=== PATIENT | female | born 1930 | race Caucasian/White ===

== ENCOUNTER 2016-07-04 11:03 | Emergency (ER) | payer OTHER ==
--- NOTE | 2016-07-04 13:00 | ED ORDER SUMMARY ---
..... Patient: APRIL EDDY OrderSheet [facility] VisitID: [id number] [address] [place] [address] 85y, F Registration Date/Time: 07/04/2016 ORDER SHEET Weight: 77.1 kg (stated) Allergies: No Known Drug Allergy GENERAL ORDERS: MEDICATION ORDERS: Toradol IM 60 mg (NOW) (11:49 07/04/2016 Beverly JAMA) (11:58 LWhalen R.N.) Hydrocodone-APAP PO 5/325 mg (NOW, HIGH ALERT MEDICATION) (11:49 07/04/2016 Beverly JAMA) (11:59 LWemily R.N.) IV FLUIDS: ORDER SHEET NOTES: [Electronically signed by Rosana Jean-Baptiste MD (21:44 07/04/2016)] [Electronically signed by Lisa Juarez R.N. (10:07/05/2016)] [Electronically locked/signed by Lisa Juarez R.N. (10:07/05/2016)]
--- NOTE | 2016-07-04 13:00 | ED CLINICAL REPORT ---
Clinical Report - Physicians/Mid Levels [facility] [address] [place] [address] 07/04/2016 11:03 Patient: APRIL EDDY Time Seen: 11:07. Arrived- By ambulance. Historian- patient and EMS personnel. HISTORY OF PRESENT ILLNESS Chief Complaint: LOWER EXTREMITY PAIN. Modifying factors- worsened by standing and walking. This started yesterday and is still present. Severity is described as being moderate (patient states that hurts to bear weight). The quality is noted to be "pain" and similar to prior episodes. No radiation. Symptoms located in the area of the left knee. The patient has had swelling, but not had redness. She has had difficulty walking. No bladder dysfunction, bowel dysfunction, sensory loss or motor loss. ( Patient states that the pain causes her to not be able to use the leg well. She denies isolated weakness and states the symptoms started with pain in the left knee. Patient has not had any fevers or recent new injury. She has a history of severe arthritis in her left knee but has never discussed having a knee replacement.). Patient denies an injury. Similar symptoms previously: Many times. REVIEW OF SYSTEMS No cough, chest pain, difficulty breathing, fever or skin rash. No enlarged lymph nodes, neck pain, back pain, headache or blurred vision. No sore throat, abdominal pain, vomiting, diarrhea or black stools. No difficulty with urination or bloody stools. All systems otherwise negative, except as recorded above. PAST HISTORY Problems: Lung Disease. Diabetes Mellitus. Arthritis. Depression. Hypothyroidism. Macular Degeneration. Rotator Cuff Injury. Diabetes Mellitus Type 2. Hypertension. Tetanus Status. LNMP - Last Normal Menstrual Period. Additional Surgeries: Cataract Surgery. . Medications: Jardiance Oral (Tablet 25 mg) 1/2 tablet. Eelpol-Noexthxbi-Lr-Mg-C-D Oral. Glimepiride Oral (Tablet 4 mg) 1 tablet. Fluticasone Propionate Nasal. Cetirizine HCl Oral 10 mg, daily. Acetaminophen Oral. Levothroid Oral (Tablet 137 mcg) 1 tablet, daily. Ocuvite Adult 50+ Oral. Omeprazole Oral 20 mg, 2x a day. Potassium Oral 1 tablet, daily. TraZODone HCl Oral 50 mg, at bedtime as needed. Vit c 500mg po day. Vit D3 1 tab, daily. Vits, multi. AmLODIPine Besylate Oral 10 mg, daily. Benazepril HCl Oral (Tablet 20 mg) 1 tablet, day. Biotin Oral 1000mg , day. Nabor Carb Oral 400mg , day. Fish Oil Oral (Capsule 1000 mg) 1 capsule, day. Furosemide Oral 40 mg, daily. Allergies: No Known Drug Allergy. SOCIAL HISTORY Never smoker. No alcohol use or drug use. ADDITIONAL NOTES The nursing notes have been reviewed. PHYSICAL EXAM Vital Signs: 07/04/2016 11:08 BP: 121/66. HR: 92. RR: 18. O2 saturation: 97%. Temp: 97.4 F. Appearance: Alert. Oriented X3. No acute distress. Eyes: Pupils equal, round and reactive to light. Eyes normal inspection. ENT: Nose normal. Neck: Normal inspection. CVS: Normal heart rate and rhythm. Heart sounds normal. Respiratory: No respiratory distress. Breath sounds normal. Abdomen: Soft and nontender. Back: Normal inspection. No tenderness. Skin: Skin intact. Skin warm and dry. Normal skin color. Normal skin turgor. Extremities: Left knee: mild tenderness and moderate swelling located in the suprapatellar area, medial joint line and lateral joint line. Limited ROM secondary to pain (diminished flexion). Medium sized joint effusion present. Neurovascular intact distally. No ligamentous laxity present. No erythema, laceration, abrasion, ecchymosis or puncture wound. No foreign body or deformity. No signs of infection involving the lower extremities. Extremities otherwise negative. Gait: Gait not tested due to pain. Neuro, Vascular and Tendons: No pulse deficit present. Neuro: No motor deficit. No sensory deficit. (Patient answers questions appropriately.). LABS, X-RAYS, AND EKG Pulse Oximetry: 07/04/2016 11:08 O2 saturation: 97%. (FIO2 - room air). Interpretation: normal. PROGRESS AND PROCEDURES Course of Care: The patient's main complaint was knee pain. She did not actually complain of weakness though she did state that it was difficult to move her knee secondary to the pain. I did not feel this patient had had a CVA. Patient was treated symptomatically with Toradol and hydrocodone. I did advise her thatit may be worth speaking with her primary doctor about a referral to orthopedics to discuss a knee replacement. No emergent condition was identified and patient is deemed stable for discharge home. Patient counseled in person regarding the patient's stable condition, diagnosis and need for follow-up. Concerns were addressed. Old medical records reviewed. Disposition: Discharged. Condition: stable. CLINICAL IMPRESSION Acute flare of moderate primary osteoarthritis involving the left knee. INSTRUCTIONS (There is no sign of a stroke today. Your chronic knee problems appear to be flaring up, and you may want to consider having your doctor refer you to discuss having a knee replacement done. As for your facial swelling, you have no pain or tenderness to suggest a dental infection. It is not clear why you have swelling. If you develop pain or fevers, you should be re-evaluated for consideration of antibiotics.). Warnings: GENERAL WARNINGS: Return or contact your physician immediately if your condition worsens or changes unexpectedly, if not improving as expected, or if other problems arise. Your Current Medications: CONTINUE TAKING THE FOLLOWING MEDICATIONS: Acetaminophen Oral. AmLODIPine Besylate Oral : 10 mg daily. Benazepril HCl Oral : Tablet 20 mg, 1 tablet day. Biotin Oral : 1000mg day. Nabor Carb Oral : 400mg day. Cetirizine HCl Oral : 10 mg daily. Fish Oil Oral : Capsule 1000 mg, 1 capsule day. Fluticasone Propionate Nasal. Furosemide Oral : 40 mg daily. Glimepiride Oral : Tablet 4 mg, 1 tablet. Ibnwew-Psftauwol-Nj-Mg-C-D Oral. Jardiance Oral : Tablet 25 mg, 1/2 tablet. Levothroid Oral : Tablet 137 mcg, 1 tablet daily. Ocuvite Adult 50+ Oral. Omeprazole Oral : 20 mg 2x a day. Potassium Oral : 1 tablet daily. TraZODone HCl Oral : 50 mg at bedtime, prn. Vit c 500mg po day*. Vit D3* : 1 tab daily. Vits, multi*. Prescription Medications: Hydrocodone/APAP 5mg / 325mg: take 1-2 orally every 6 hours as needed for pain. Dispense twenty (20). No refill. Ibuprofen 800 mg tablets: take 1 tablet orally every 8 hours as needed for pain. Dispense twenty (20). No refill. Follow-up: Follow up with your doctor. Call for the next available appointment. Understanding of the discharge instructions verbalized by patient. (Electronically signed by Rosana Jean-Baptiste MD 07/04/2016 21:44)
--- NOTE | 2016-07-04 13:00 | ED ORDER SUMMARY ---
..... Patient: APRIL EDDY OrderSheet [facility] VisitID: [id number] [address] [place] [address] 85y, F Registration Date/Time: 07/04/2016 ORDER SHEET Weight: 77.1 kg (stated) Allergies: No Known Drug Allergy GENERAL ORDERS: MEDICATION ORDERS: Toradol IM 60 mg (NOW) (11:49 07/04/2016 Beverly JMAA) (11:58 LWhalen R.N.) Hydrocodone-APAP PO 5/325 mg (NOW, HIGH ALERT MEDICATION) (11:49 07/04/2016 Beverly JAMA) (11:59 LWemily R.N.) IV FLUIDS: ORDER SHEET NOTES: [Electronically signed by Rosana Jean-Baptiste MD (21:44 07/04/2016)] [Electronically signed by Lisa Juarez R.N. (10:07/05/2016)] [Electronically locked/signed by Lisa Juarez R.N. (10:07/05/2016)]
--- NOTE | 2016-07-04 13:00 | ED NURSING NOTES ---
Clinical Report - Nurses [facility] [address] [place] [address] 07/04/2016 11:03 [id number] Triage time 11:Jul 04 2016. Acuity: LEVEL 3. Chief Complaint: INJURY TO LEFT KNEE. WILLIAM COMA SCORE: William Coma Scale: 15- eyes open spontaneously (4); best verbal response- oriented x 4 (5); best motor response- obeys commands (6). --11:18 Lisa Juarez R.N. 11:08 07/04/16. BP: 121/66. HR: 92. RR: 18. O2 saturation: 97%. Temp: 97.4 F. Pain level now 8/10. --11:18 Lias Juarez R.N. Weight: 77.1 kg stated. Height/Length: 64 inches Per Patient. BMI: 29.2. --11:17 Lisa Juarez R.N. Medications AmLODIPine Besylate Oral 10 mg, daily. Benazepril HCl Oral (Tablet 20 mg) 1 tablet, day. Biotin Oral 1000mg , day. Nabor Carb Oral 400mg , day. Fish Oil Oral (Capsule 1000 mg) 1 capsule, day. Furosemide Oral 40 mg, daily. --11:12 Lisa Juarez R.N. Levothroid Oral (Tablet 137 mcg) 1 tablet, daily. Ocuvite Adult 50+ Oral. Omeprazole Oral 20 mg, 2x a day. Potassium Oral 1 tablet, daily. TraZODone HCl Oral 50 mg, at bedtime as needed. Vit c 500mg po day. Vit D3 1 tab, daily. Vits, multi. --11:12 Lisa Juarez R.N. Acetaminophen Oral. --11:12 Lisa Juarez R.N. Cetirizine HCl Oral 10 mg, daily. --11:12 Lisa Juarez R.N. Fluticasone Propionate Nasal. --11:13 Lisa Juarez R.N. Glimepiride Oral (Tablet 4 mg) 1 tablet. --11:13 Lisa Juarez R.N. Gaugeu-Hxmnudoth-Mj-Mg-C-D Oral. --11:14 Lisa Juarez R.N. Jardiance Oral (Tablet 25 mg) 1/2 tablet. --11:14 Lisa Juarez R.N. Allergies No Known Drug Allergy. --11:12 Lisa Juarez R.N. History Arrived by EMS. Historian: patient. This occurred today. Occurred at [facility]. ( Patient states can't bear weight on left leg. Pain comes from knee.). She has had trouble walking and weakness. No numbness, tingling, neck pain or back pain. Treatment FORM SETTER/DRIVER: None. PAST MEDICAL HX: Diabetes mellitus. Hypertension. Heart disease. Lung disease. Tetanus status: up-to-date. Immunizations: up-to-date. SOCIAL HX: Never smoker. No alcohol use or drug use. SELF HARM ASSESSMENT: A self harm assessment was performed. The patient answered "no" to the question "Have you recently felt down, depressed, or hopeless?" and "Do you have thoughts of harming or killing yourself?". NUTRITIONAL RISK ASSESSMENT: The nutritional risk assessment revealed no deficiencies. FUNCTIONAL ASSESSMENT: Functional assessment: no impairments noted. LEARNING NEEDS ASSESSMENT: The learning needs assessment revealed no barriers. ABUSE ASSESSMENT: Abuse assessment: (yes) The patient was asked "Do you feel safe in your home?". FALL RISK ASSESSMENT: Fall risk assessment completed. Risk factors identified include severe pain and patient impairment of mobility. Fall interventions initiated. Side rails up x2. Bed in low position. Patient visible from nurses' station and identified as a fall risk by ID band. Call light in reach of patient. Instructed not to get up without assistance. SKIN INTEGRITY ASSESSMENT: Skin integrity risk assessment completed. No skin integrity risk identified. SMART FALL SCALE: Smart Fall Scale Score: 40 (25 - 44 = Moderate Risk). The patient has a secondary diagnosis, ambulates using crutches/cane/walker. The patient's gait is weak during transfer. --11:18 Lisa Juarez R.N. PROBLEMS: Hypothyroidism. Macular Degeneration. Depression. Arthritis. Rotator Cuff Injury. Diabetes Mellitus Type 2. Fall. Contusion. --11:15 Lisa Juarez R.N. ADDITIONAL SURGERIES: Cataract Surgery. . --11:15 Lisa Juarez R.N. Interventions ID band on patient. --11:18 Lisa Juarez R.N. PHYSICAL ASSESSMENT To room via stretcher. GENERAL / NEURO / PSYCH: Oriented X 4. Appears in pain. HEENT: ( left side facial swelling). EXTREMITIES: Capillary refill is less than 2 seconds in the extremities. Extremity pulses are within normal limits. Pain with weight bearing. Neuro-vascular status intact to the extremity. Left knee: tenderness and erythema. SKIN: Skin intact. Skin is warm and dry. --11:19 Lisa Juarez R.N. NURSING PROGRESS NOTES The plan of care for this patient has been created. Cold pack applied. Extremity elevated. Neuro-vascular extremity check. Patient gowned. Reassurance given. Call light placed in reach. Side rails up x 2. Bed placed in lowest position. Brakes of bed on. --11:19 Lisa Juaerz R.N. 11:58 07/04/2016 Toradol (Ketorolac Tromethamine) IM 60 mg given. Given in the left gluteus karl. Allergies verified and confirmed 5 rights. --11:58 Lisa Juarez R.N. 11:59 07/04/2016 Hydrocodone-APAP (Hydrocodone-Acetaminophen) PO 5/325 mg Tablets 1 tab given. Allergies verified, confirmed 5 rights and sedative warning given to the patient. --11:59 Lisa Juarez R.N. DISPOSITION / DISCHARGE Departure time: 14:Jul 04 2016. Condition at departure: improved. No learning barriers present. Discharge instructions provided and reviewed with the patient. Reviewed warnings. Reviewed medication(s). Treatments reviewed. Reviewed referrals. Patient verbalized understanding. Written instructions provided in Mauritian. The patient was discharged home. She left the Emergency Department via ambulance and on a stretcher. Driving (ambulance). --14: Lisa Juarez R.N. 14:16 07/04/16. BP: 132/66. HR: 81. RR: 18. O2 saturation: 94%. Temp: 98.4 F. Pain level now 0/10. --14:19 Lisa Juarez R.N. Locked/Released at 07/05/2016 10:09 by Lisa Juarez R.N.
--- NOTE | 2016-07-04 13:00 | ED NURSING NOTES ---
Clinical Report - Nurses [facility] [address] [place] [address] 07/04/2016 11:03 [id number] Triage time 11:Jul 04 2016. Acuity: LEVEL 3. Chief Complaint: INJURY TO LEFT KNEE. WILLIAM COMA SCORE: William Coma Scale: 15- eyes open spontaneously (4); best verbal response- oriented x 4 (5); best motor response- obeys commands (6). --11:18 Lisa Juarez R.N. 11:08 07/04/16. BP: 121/66. HR: 92. RR: 18. O2 saturation: 97%. Temp: 97.4 F. Pain level now 8/10. --11:18 Lisa Juarez R.N. Weight: 77.1 kg stated. Height/Length: 64 inches Per Patient. BMI: 29.2. --11:17 Lisa Juarez R.N. Medications AmLODIPine Besylate Oral 10 mg, daily. Benazepril HCl Oral (Tablet 20 mg) 1 tablet, day. Biotin Oral 1000mg , day. Nabor Carb Oral 400mg , day. Fish Oil Oral (Capsule 1000 mg) 1 capsule, day. Furosemide Oral 40 mg, daily. --11:12 Lisa Juarez R.N. Levothroid Oral (Tablet 137 mcg) 1 tablet, daily. Ocuvite Adult 50+ Oral. Omeprazole Oral 20 mg, 2x a day. Potassium Oral 1 tablet, daily. TraZODone HCl Oral 50 mg, at bedtime as needed. Vit c 500mg po day. Vit D3 1 tab, daily. Vits, multi. --11:12 Lisa Juarez R.N. Acetaminophen Oral. --11:12 Lisa Juarez R.N. Cetirizine HCl Oral 10 mg, daily. --11:12 Lisa Juarez R.N. Fluticasone Propionate Nasal. --11:13 Lisa Juarez R.N. Glimepiride Oral (Tablet 4 mg) 1 tablet. --11:13 Lisa Juarez R.N. Ombtta-Cjumvxaqv-Xk-Mg-C-D Oral. --11:14 Lisa Juarez R.N. Jardiance Oral (Tablet 25 mg) 1/2 tablet. --11:14 Lisa Juarez R.N. Allergies No Known Drug Allergy. --11:12 Lisa Juarez R.N. History Arrived by EMS. Historian: patient. This occurred today. Occurred at [facility]. ( Patient states can't bear weight on left leg. Pain comes from knee.). She has had trouble walking and weakness. No numbness, tingling, neck pain or back pain. Treatment COMMUNITY EDUCATION SPECIALIST: None. PAST MEDICAL HX: Diabetes mellitus. Hypertension. Heart disease. Lung disease. Tetanus status: up-to-date. Immunizations: up-to-date. SOCIAL HX: Never smoker. No alcohol use or drug use. SELF HARM ASSESSMENT: A self harm assessment was performed. The patient answered "no" to the question "Have you recently felt down, depressed, or hopeless?" and "Do you have thoughts of harming or killing yourself?". NUTRITIONAL RISK ASSESSMENT: The nutritional risk assessment revealed no deficiencies. FUNCTIONAL ASSESSMENT: Functional assessment: no impairments noted. LEARNING NEEDS ASSESSMENT: The learning needs assessment revealed no barriers. ABUSE ASSESSMENT: Abuse assessment: (yes) The patient was asked "Do you feel safe in your home?". FALL RISK ASSESSMENT: Fall risk assessment completed. Risk factors identified include severe pain and patient impairment of mobility. Fall interventions initiated. Side rails up x2. Bed in low position. Patient visible from nurses' station and identified as a fall risk by ID band. Call light in reach of patient. Instructed not to get up without assistance. SKIN INTEGRITY ASSESSMENT: Skin integrity risk assessment completed. No skin integrity risk identified. SMART FALL SCALE: Smart Fall Scale Score: 40 (25 - 44 = Moderate Risk). The patient has a secondary diagnosis, ambulates using crutches/cane/walker. The patient's gait is weak during transfer. --11:18 Lisa Juarez R.N. PROBLEMS: Hypothyroidism. Macular Degeneration. Depression. Arthritis. Rotator Cuff Injury. Diabetes Mellitus Type 2. Fall. Contusion. --11:15 Lisa Juarez R.N. ADDITIONAL SURGERIES: Cataract Surgery. . --11:15 Lisa Juarez R.N. Interventions ID band on patient. --11:18 Lisa Juarez R.N. PHYSICAL ASSESSMENT To room via stretcher. GENERAL / NEURO / PSYCH: Oriented X 4. Appears in pain. HEENT: ( left side facial swelling). EXTREMITIES: Capillary refill is less than 2 seconds in the extremities. Extremity pulses are within normal limits. Pain with weight bearing. Neuro-vascular status intact to the extremity. Left knee: tenderness and erythema. SKIN: Skin intact. Skin is warm and dry. --11:19 Lisa Juarez R.N. NURSING PROGRESS NOTES The plan of care for this patient has been created. Cold pack applied. Extremity elevated. Neuro-vascular extremity check. Patient gowned. Reassurance given. Call light placed in reach. Side rails up x 2. Bed placed in lowest position. Brakes of bed on. --11:19 Lisa Juarez R.N. 11:58 07/04/2016 Toradol (Ketorolac Tromethamine) IM 60 mg given. Given in the left gluteus karl. Allergies verified and confirmed 5 rights. --11:58 Lisa Juarez R.N. 11:59 07/04/2016 Hydrocodone-APAP (Hydrocodone-Acetaminophen) PO 5/325 mg Tablets 1 tab given. Allergies verified, confirmed 5 rights and sedative warning given to the patient. --11:59 Lisa Juarez R.N. DISPOSITION / DISCHARGE Departure time: 14:Jul 04 2016. Condition at departure: improved. No learning barriers present. Discharge instructions provided and reviewed with the patient. Reviewed warnings. Reviewed medication(s). Treatments reviewed. Reviewed referrals. Patient verbalized understanding. Written instructions provided in Brazilian. The patient was discharged home. She left the Emergency Department via ambulance and on a stretcher. Driving (ambulance). --14: Lisa Juarez R.N. 14:16 07/04/16. BP: 132/66. HR: 81. RR: 18. O2 saturation: 94%. Temp: 98.4 F. Pain level now 0/10. --14:19 Lisa Juarez R.N. Locked/Released at 07/05/2016 10:09 by Lisa Juarez R.N.
--- NOTE | 2016-07-05 15:12 | ED MED RECONCILIATION SUMMARY ---
Patient: APRIL EDDY Medication Reconciliation Report [facility] VisitID: [id number] [address] [place] [address] 85y, F Registration Date/Time: 07/04/2016 Weight: 77.1 kg Height/Length: 64 in. BMI: 29.2 ALLERGIES: No Known Drug Allergy The patient's Home Medications are listed below: CONTINUE TAKING THE FOLLOWING MEDICATIONS: Acetaminophen Oral AmLODIPine Besylate Oral 10 mg, daily Benazepril HCl Oral (20 mg) 1 tablet, day Biotin Oral 1000mg , day Nabor Carb Oral 400mg , day Cetirizine HCl Oral 10 mg, daily Fish Oil Oral (1000 mg) 1 capsule, day Fluticasone Propionate Nasal Furosemide Oral 40 mg, daily Glimepiride Oral (4 mg) 1 tablet Wrzknt-Ybiyjvtld-Kh-Mg-C-D Oral Jardiance Oral (25 mg) 1/2 tablet Levothroid Oral (137 mcg) 1 tablet, daily Ocuvite Adult 50+ Oral Omeprazole Oral 20 mg, 2x a day Potassium Oral 1 tablet, daily TraZODone HCl Oral 50 mg, at bedtime Vit c 500mg po day Vit D3 1 tab, daily Vits, multi The source(s) of the original Home Medication information: Not obtained. The following Medications were given to the patient in the Emergency Department: Toradol [IM] IM 60 mg, administered: 07/04/2016 11:58:00 AM Hydrocodone-APAP [PO] PO 1 tab, administered: 07/04/2016 11:59:00 AM The following Medications were prescribed to the patient: Hydrocodone/APAP 5mg / 325mg: take 1-2 orally every 6 hours as needed for pain. Dispense twenty (20). No refill. -- Rosana Jean-Baptiste MD Ibuprofen 800 mg tablets: take 1 tablet orally every 8 hours as needed for pain. Dispense twenty (20). No refill. -- Rosana Jean-Baptiste MD
--- NOTE | 2016-07-05 15:12 | ED DISCHARGE INSTRUCTIONS ---
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 INSTRUCTIONS (There is no sign of a stroke today. Your chronic knee problems appear to be flaring up, and you may want to consider having your doctor refer you to discuss having a knee replacement done. As for your facial swelling, you have no pain or tenderness to suggest a dental infection. It is not clear why you have swelling. If you develop pain or fevers, you should be re-evaluated for consideration of antibiotics.). Warnings: GENERAL WARNINGS: Return or contact your physician immediately if your condition worsens or changes unexpectedly, if not improving as expected, or if other problems arise. Your Current Medications: CONTINUE TAKING THE FOLLOWING MEDICATIONS: Acetaminophen Oral. AmLODIPine Besylate Oral : 10 mg daily. Benazepril HCl Oral : Tablet 20 mg, 1 tablet day. Biotin Oral : 1000mg day. Nabor Carb Oral : 400mg day. Cetirizine HCl Oral : 10 mg daily. Fish Oil Oral : Capsule 1000 mg, 1 capsule day. Fluticasone Propionate Nasal. Furosemide Oral : 40 mg daily. Glimepiride Oral : Tablet 4 mg, 1 tablet. Fhisuv-Cmufgxnln-Wv-Mg-C-D Oral. Jardiance Oral : Tablet 25 mg, 1/2 tablet. Levothroid Oral : Tablet 137 mcg, 1 tablet daily. Ocuvite Adult 50+ Oral. Omeprazole Oral : 20 mg 2x a day. Potassium Oral : 1 tablet daily. TraZODone HCl Oral : 50 mg at bedtime, prn. Vit c 500mg po day*. Vit D3* : 1 tab daily. Vits, multi*. Prescription Medications: Hydrocodone/APAP 5mg / 325mg: take 1-2 orally every 6 hours as needed for pain. Dispense twenty (20). No refill. Ibuprofen 800 mg tablets: take 1 tablet orally every 8 hours as needed for pain. Dispense twenty (20). No refill. Follow-up: Follow up with your doctor. Call for the next available appointment. Understanding of the discharge instructions verbalized by patient. ADDITIONAL INFORMATION Osteoarthritis Osteoarthritis (also called Degenerative Joint Disease) is the most common form of arthritis in adults over 50. It is not the same as Rheumatoid Arthritis. The exact cause is not known but may be related to excess wear and tear on the joint over a long period of time. Prior injury to that joint, or repeated stress on a joint can also cause this type of arthritis. Osteoarthritis most often affects the hands, knees, spine and hips (in that order). The most common symptoms are joint stiffness, pain and swelling. Home Care: When a joint is more sore than usual, rest that joint for a day or two. Heat is very helpful. This can be provided by taking hot baths, applying a heating pad for up to 30 minutes at a time. Because symptoms are usually worse in the morning, many patients like to take a hot bath just after awakening to relax the muscle and soothe the joints. Exercise is the most important part of home treatment for osteoarthritis. This prevents the muscles and ligaments around the joint from becoming weak and helps maintain the full range of joint motion. This limits further damage to the joint. If you are overweight, this puts a lot of extra strain on weight-bearing joints of the lower back, hips, knees, feet and ankles. Losing weight will improve your arthritis symptoms in these joints. Talk to your doctor about a safe and effective weight loss program for yourself. Anti-inflammatory medicine such as ibuprofen (Advil, Motrin) or naproxen (Aleve) is often used to treat this condition. If this alone is not helping, your doctor may prescribe a stronger medicine. If narcotic pain medicines have been prescribed, they should be used in addition to anti-inflammatory drugs and only for severe pain. Follow Up with your doctor as advised by our staff. Get Prompt Medical Attention if any of the following occur: Redness or swelling of a painful joint Fever of 100.4F (38C) or higher, or as directed by your healthcare provider Worsening joint pain You have been given the following additional information: Osteoarthritis (Electronically signed by Rosana Jean-Baptiste MD 07/04/2016 21:44)
--- NOTE | 2016-07-05 15:12 | ED MED RECONCILIATION SUMMARY ---
Patient: APRIL EDDY Medication Reconciliation Report [facility] VisitID: [id number] [address] [place] [address] 85y, F Registration Date/Time: 07/04/2016 Weight: 77.1 kg Height/Length: 64 in. BMI: 29.2 ALLERGIES: No Known Drug Allergy The patient's Home Medications are listed below: CONTINUE TAKING THE FOLLOWING MEDICATIONS: Acetaminophen Oral AmLODIPine Besylate Oral 10 mg, daily Benazepril HCl Oral (20 mg) 1 tablet, day Biotin Oral 1000mg , day Nabor Carb Oral 400mg , day Cetirizine HCl Oral 10 mg, daily Fish Oil Oral (1000 mg) 1 capsule, day Fluticasone Propionate Nasal Furosemide Oral 40 mg, daily Glimepiride Oral (4 mg) 1 tablet Aiynyl-Rgljkxoht-Jf-Mg-C-D Oral Jardiance Oral (25 mg) 1/2 tablet Levothroid Oral (137 mcg) 1 tablet, daily Ocuvite Adult 50+ Oral Omeprazole Oral 20 mg, 2x a day Potassium Oral 1 tablet, daily TraZODone HCl Oral 50 mg, at bedtime Vit c 500mg po day Vit D3 1 tab, daily Vits, multi The source(s) of the original Home Medication information: Not obtained. The following Medications were given to the patient in the Emergency Department: Toradol [IM] IM 60 mg, administered: 07/04/2016 11:58:00 AM Hydrocodone-APAP [PO] PO 1 tab, administered: 07/04/2016 11:59:00 AM The following Medications were prescribed to the patient: Hydrocodone/APAP 5mg / 325mg: take 1-2 orally every 6 hours as needed for pain. Dispense twenty (20). No refill. -- Rosana Jean-Baptiste MD Ibuprofen 800 mg tablets: take 1 tablet orally every 8 hours as needed for pain. Dispense twenty (20). No refill. -- Rosana Jean-Baptiste MD
--- NOTE | 2016-07-05 15:12 | ED MAR SUMMARY ---
..... Medication Administration Record [facility] [address] [place] [address] Patient: APRIL EDDY Visit ID: [id number] 85y, F Weight: 77.1 kg Height/Length: 64 in BMI: 29.2 ALLERGIES: No Known Drug Allergy Given 11:58 07/04/2016 Lisa Juarez, REmaN. Medication Administered: TORADOL [IM] (KETOROLAC TROMETHAMINE), Dose: 60 mg IM. Medication Ordered: Toradol IM 60 mg (NOW). Given 11:59 07/04/2016 Lisa Juarez, R.N. Medication Administered: HYDROCODONE-APAP [PO] (HYDROCODONE-ACETAMINOPHEN), Dose: 1 tab 5/325 mg Tablets PO. Medication Ordered: Hydrocodone-APAP PO 5/325 mg (NOW, HIGH ALERT MEDICATION).
--- NOTE | 2016-07-05 15:12 | ED MAR SUMMARY ---
..... Medication Administration Record [facility] [address] [place] [address] Patient: APRIL EDDY Visit ID: [id number] 85y, F Weight: 77.1 kg Height/Length: 64 in BMI: 29.2 ALLERGIES: No Known Drug Allergy Given 11:58 07/04/2016 Lisa Juarez, REmaN. Medication Administered: TORADOL [IM] (KETOROLAC TROMETHAMINE), Dose: 60 mg IM. Medication Ordered: Toradol IM 60 mg (NOW). Given 11:59 07/04/2016 Lisa Juarez, R.N. Medication Administered: HYDROCODONE-APAP [PO] (HYDROCODONE-ACETAMINOPHEN), Dose: 1 tab 5/325 mg Tablets PO. Medication Ordered: Hydrocodone-APAP PO 5/325 mg (NOW, HIGH ALERT MEDICATION).
== END 2016-07-04 14:18 | disposition home or self-care (01) ==
LOC: ED SRH 11:03
DX: M17.12 Unilateral primary osteoarthritis, left knee (principal); E11.9 Type 2 diabetes mellitus without complications; I10 Essential (primary) hypertension; Z79.899 Other long term (current) drug therapy